=== PATIENT | female | born 1995 | race Caucasian/White ===

== ENCOUNTER 2016-12-19 17:01 | Emergency (ER) | payer OTHER ==
--- NOTE | 2016-12-19 17:24 | ER PHYSICIAN DOCUMENTATION ---
Physician Documentation [facility] Name:Yris Turner Age:21 yrs Sex:Female :1995 Arrival Date:12/19/2016 Time:17:01 Bed2 Private MD: Elan Morales Disposition: 12/19/16 17:14 Discharged to Home/Self Care. Impression: Strep Sore Throat. - Condition is Good. - Discharge Instructions: PHARYNGITIS, Strep (Confirmed). - Prescriptions for Clindamycin HCl 150 mg Oral Capsule - take 1 capsule by ORAL route every 6 hours for 10 days; 40 capsule. - Medical Reconciliation form form. - Follow up: Private Physician; When: 7 - 10 days; Reason: Recheck today's complaints, Continuance of care. - Problem is new. - Symptoms are unchanged. - Notes: Take Clindamycin 150mg by mouth every 6 hours for 10 days Drink plenty of fluids... Use Chloroseptic [place] 2 sprays by mouth when needed for pain Take Ibuprofen 400mg by mouth every 6 hours for 2 - 3 days. HPI: 12/19 17:18 This 21 yrs old Female presents to ER via Walk In with complaints of Sore cd Throat. 17:18 The patient presents with sore throat. The patient describes throat pain as burning, cd constant. Onset: The symptom(s)/episode began/occurred acutely, yesterday. Severity of symptoms: At their worst the symptoms were moderate, in the emergency department the symptoms are unchanged. 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 She is allergic to antibiotics.. Historical: - Allergies: PENICILLINS; mold; - Home Meds: 1. Acetaminophen Oral - PMHx: None; - PSHx: adenoidectomy; - Tetanus: < 10 years. - Ebola Screening: : Patient negative for fever greater than or equal to 101.5 degrees Fahrenheit, and additional compatible Ebola Virus Disease symptoms. Patient denies exposure to infectious person. Patient denies travel to an Ebola-affected area in the 21 days before illness onset. No symptoms or risks identified at this time. . - Immunization history: Flu Vaccine < 1 year. - Social history: Smoking status: Patient states was never smoker of tobacco. Patient/guardian denies using alcohol, marijuana. ROS: 17:20 Constitutional: Positive for fever, poor PO intake, Negative for chills. cd 17:20 ENT: Positive for sinus congestion, sore throat, Negative for ear pain, rhinorrhea, sinus pain. 17:20 Neck: Negative for acute changes. 17:20 All other systems are negative. Exam: 17:20 Constitutional: The patient appears alert, awake, non-diaphoretic, non-toxic. cd 17:20 ENT: Mouth: is normal, Posterior pharynx: Airway: normal, Tonsils: bilaterally enlarged, with erythema, no exudate, Uvula: normal, Dental exam: normal. 17:20 Neck: Exam negative for acute changes, ROM/movement: is normal, is supple. 17:20 Respiratory: Respirations: normal, no acute changes, Breath sounds: are normal, clear throughout. Vital Signs: 17:10 BP 121 / 97 LA Sitting (auto/reg); Pulse 117 RA; Resp 16 S; Temp 99.3(O); Pulse Ox 93% em3 on R/A; Weight 54.43 kg (R); Height 5 ft. 2 in. (157.48 cm) (R); Pain 4/10; 17:10 Body Mass Index 21.95 (54.43 kg, 157.48 cm) em3 MDM: 17:13 Patient medically screened. cd 17:21 Data reviewed: vital signs, nurses notes, old medical records, and as a result, I will cd discharge patient. Data interpreted: Pulse oximetry: on room air is 93 %. Interpretation: normal. Counseling: I had a detailed discussion with the patient and/or guardian regarding: the historical points, exam findings, and any diagnostic results supporting the discharge/admit diagnosis, the need for outpatient follow up, for a recheck, with the patient's primary care provider, to return to the emergency department if symptoms worsen or persist or if there are any questions or concerns that arise at home. Dispensed Medications: No medications were administered Signatures: Elan Parikh MD MD cd Janzen, Sarah sj
--- NOTE | 2016-12-19 17:24 | ER NURSING DOCUMENTATION ---
Nurse's Notes [facility] Name:Yris Turner Age:21 yrs Sex:Female :1995 Arrival Date:12/19/2016 Time:17:01 Bed2 Private MD: Diagnosis:Strep Sore Throat Presentation: 12/19 17:09 Presenting complaint: Patient states: sore throat x2 days, positive strep test at [place]. sj Took tylenol prior to arrival. Transition of care: [place]. Notified ED Physician of patient's arrival and CC Dr. Parikh notified. 17:09 Acuity: PANFILO 4 17:09 Method Of Arrival: Walk In Triage Assessment: 17:11 General: Appears in no apparent distress, Behavior is cooperative, pleasant. Pain: sj Complains of pain in back of throat. EENT: Throat is reddened has enlarged tonsils bilaterally Reports difficulty swallowing nasal congestion pain when swallowing. Neuro: Level of Consciousness is awake, alert, Oriented to person, place, time, event. Cardiovascular: Capillary refill < 3 seconds. Respiratory: Respiratory effort is even, unlabored, Respiratory pattern is regular, symmetrical. Historical: - Allergies: PENICILLINS; mold; - Home Meds: 1. Acetaminophen Oral - PMHx: None; - PSHx: adenoidectomy; - Tetanus: < 10 years. - Ebola Screening: : Patient negative for fever greater than or equal to 101.5 degrees Fahrenheit, and additional compatible Ebola Virus Disease symptoms. Patient denies exposure to infectious person. Patient denies travel to an Ebola-affected area in the 21 days before illness onset. No symptoms or risks identified at this time. . - Immunization history: Flu Vaccine < 1 year. - Social history: Smoking status: Patient states was never smoker of tobacco. Patient/guardian denies using alcohol, marijuana. Screenin:13 Infectious Disease Risk None. Abuse screen: Denies threats or abuse. Denies injuries sj from another. Nutritional screening: No deficits noted. Assessment: 17:13 See Triage Assessment done by same RN. 17:23 Respiratory: Airway is patent. Vital Signs: 17:10 BP 121 / 97 LA Sitting (auto/reg); Pulse 117 RA; Resp 16 S; Temp 99.3(O); Pulse Ox 93% em3 on R/A; Weight 54.43 kg (R); Height 5 ft. 2 in. (157.48 cm) (R); Pain 4/10; 17:10 Body Mass Index 21.95 (54.43 kg, 157.48 cm) em3 ED Course: 17:02 Patient arrived in ED. em3 17:09 Nahomy Shi is Primary Nurse. sj 17:10 Triage completed. 17:10 Valuables Remains with patient Patient has correct armband on for positive em3 identification. Bed in low position. 17:13 Elan Parikh MD is Attending Physician. cd Administered Medications: No medications were administered Outcome: 17:14 Discharge ordered by . cd 17:[address] [facility] 17:22 Condition: stable 17:22 Instructed on discharge instructions, follow up and referral plans. medication usage, Demonstrated understanding of instructions, medications, Prescriptions given X 1. 17:23 Patient left the ED. Signatures: Elan Parikh MD MD cd Meiklejohn, Eric em3 Nahomy Shi
== END 2016-12-19 17:24 | disposition home or self-care (01) ==
LOC: ER 17:01
DX: J02.0 Streptococcal pharyngitis (principal)
CPT/HCPCS: 99282